=== PATIENT | female | born 1960 | race Two or more races ===

== ENCOUNTER 2017-01-09 13:19 | Emergency (ER) | payer MEDICAID ==
[~2017-01-09] VITALS: Ht 162.6 cm; Wt 74.8 kg
[~2017-01-09 13:19] MED LIST: ALEVE220 MG; AMOXICILLIN875 MG PO; AMOXIL500 MG PO; ANTIVERT25 MG PO; ANUSOL-HC30 G1 RC; CALCIUM 600 +1 EAC5 PO; CIPROFLOXACIN100 MG PO; CLARITIN10 M2 PO; CLARITIN10 M6 PO; COLACE100 M1 PO; FLAGYL500 M1 PO; FLEXERIL10 MG PO; HYDROCODON-ACE1 EA16 PO; IBUPROFEN600 M1 PO; IBUPROFEN800 MG PO; MAXALT MLT10 MG PO; MAXALT10 MG PO; MECLIZINE HCL25 M3 PO; MILK OF MAGNESIA PO; NORCO 5/325 TAB1 TAB PO; OMEPRAZOLE20 M2 PO; PERCOCET 5/3251 TAB PO; PROAIR HFA8.5 GM INH; TAMIFLU75 MG/CAP PO; TRAMADOL HCL50 MG PO; TYLENOL325 M2 PO; VITAMIN D350000 UNIT PO; ZOFRAN4 M2 PO
[2017-01-09] MEDS ORDERED: CYCLOBENZAPRINE5 M1 PO (14:17)
[2017-01-09] MEDS ORDERED: HYDROCODON-ACE1 EA16 PO (14:18)
[2017-01-09] MEDS ORDERED: METFORMIN HCL500 M2 PO (14:19)
[2017-01-09] MEDS ORDERED: DILAUDID2 M1 PO (15:29)
[2017-01-09] MEDS ORDERED: MEDROL4 M2 PO (15:29)
== END 2017-01-09 16:10 ==
LOC: EDMED 13:19
DX: M54.16 Radiculopathy, lumbar region (principal); E11.9 Type 2 diabetes mellitus without complications; G43.909 Migraine, unspecified, not intractable, without status migrainosus; Z88.5 Allergy status to narcotic agent; Z88.8 Allergy status to other drugs, medicaments and biological substances; Z90.49 Acquired absence of other specified parts of digestive tract; Z79.84 Long term (current) use of oral hypoglycemic drugs; Z79.899 Other long term (current) drug therapy
CPT/HCPCS: J1170; J1885